=== PATIENT | male | born 1970 | race Caucasian/White ===

== ENCOUNTER 2022-11-24 00:43 | Inpatient (IN) | payer BC, SELFPAY ==
[2022-11-24] VITALS (22 sets, daily range): BP systolic 108–149; BP diastolic 74–110; PULSE 79–122; RESP 14–23; TEMP 36.6–37.3; O2SAT 90–100; BMI 20.5
--- NOTE | 2022-11-24 00:50 | EKG12_ITS ---
Test Reason : CP Blood Pressure : / mmHG Vent. Rate : 101 BPM Atrial Rate : 101 BPM P-R Int : 150 ms QRS Dur : 100 ms QT Int : 336 ms P-R-T Axes : 086 -50 179 degrees QTc Int : 435 ms Sinus tachycardia Left axis deviation Septal infarct , age undetermined T wave abnormality, consider anterolateral ischemia Abnormal ECG Confirmed by FRANK FONTAINE ([id number]), senior technical editor ALYSSA VITALE ([id number]) on 11/28/2022 9:35:29 AM Referred By: GRETA Confirmed By:FRANK FONTAINE
--- NOTE | 2022-11-24 01:04 | RAD_ITS ---
EXAM: XR CHEST, 1 VIEW CLINICAL INDICATION: chest pain TECHNIQUE: Frontal view of the chest. COMPARISON: October 08, 2022. FINDINGS: LUNGS AND PLEURAL SPACES: Clearance of most of the previously seen mild apparent interstitial edema. Slight residual right pleural effusion blunting the right lateral costophrenic angle. No pneumothorax. HEART: Unremarkable. Cardiac silhouette not enlarged. MEDIASTINUM: Central airways and mediastinal contour are unremarkable. BONES/JOINTS: Median sternotomy wires are new from prior exam. New presumed atrial appendage clip and cardiac valve prosthesis. SOFT TISSUES: Unremarkable. TUBES, LINES AND DEVICES: Right upper extremity PICC line catheter with its tip over the mid or distal SVC appears adequately positioned. RAD/Chest 1 View (Portable) IMPRESSION: 1. New postoperative changes. Normal heart size. 2. Mild prominent central pulmonary vessels but improved appearance of the lung periphery. 3. Slight right pleural effusion. 4. Adequately positioned PICC line. Electronically Signed: Milly Delgadillo MD at 2:44 EDT ,
--- NOTE | 2022-11-24 01:04 | CT_ITS ---
We are attempting to reach an attending provider to discuss findings. An addendum with communication details will be sent when the communication is complete. EXAM: CT HEAD WITHOUT INTRAVENOUS CONTRAST CLINICAL INDICATION: headache TECHNIQUE: Multiple axial images were obtained of the head without intravenous contrast. This CT exam was performed using one or more of the following dose reduction techniques: automated exposure control, adjustment of the mA and/or kV according to patient size, and/or use of iterative reconstruction technique. RADIATION DOSE: CTDIvol = 44.99 mGy, DLP = 880.47 mGy-cm. COMPARISON: CT and report October 06, 2022. FINDINGS: BRAIN AND EXTRA-AXIAL SPACES: There is new narrowing of the right sylvian fissure and new adjacent mild hyperdensity on both sides of the sylvian fissure extending to the basal ganglia, uncertain whether this is petechial hemorrhage or subacute hematoma, less likely mass since it is new from October 06, 2022 but MRI is suggested. No midline shift. Mild ventriculomegaly of the ventricles without yen hydrocephalus. No evidence of acute infarct. There is preservation of the hunt/white matter interface. Posterior fossa structures are unremarkable. Basal cisterns are patent. BONES/JOINTS: Unremarkable. No discrete lytic or blastic abnormalities. Minimal mucosal thickening in left ethmoid and sphenoid sinuses, mild bulging contour of the medial wall of the right orbit and suspected subacute or chronic fracture, mild increased bulging contour compared to prior exam, correlate with recent trauma. MASTOID AIR CELLS: Unremarkable. Clear. ORBITS: Visualized globes, extraocular muscles, optic nerves and retrobulbar fat appear unremarkable. CT/Brain/Head without Contrast IMPRESSION: 1. Narrowing of the right sylvian fissure with altered surrounding density, new from October 06, 2022. Considerations include resolving parenchymal hemorrhage, petechial hemorrhage, or underlying neoplasm. Mild increased bulging contour of the medial wall of right orbit but not convincing for acute fracture. Correlate with recent trauma. 2. MRI without and with contrast is recommended for further evaluation. Electronically Signed: Milly Delgadillo MD at 3:39 EDT Reading Location ID and State: [facility] / [place] Tel , Service support ,
[2022-11-24 01:14] LABS: Absolute Lymphocyte Count 1.08 X10^3/uL (0.83-4.51); Absolute Neutrophil Count 6.6 X10^3/uL (2.0-7.7); Basophil# 0.12 X10^3/uL; Basophil% 1.2 % (0-1); Eosinophil# 1.44 X10^3/uL; Eosinophils% 14.3 % (0-5); Hematocrit 28.5 % (40-54); Hemoglobin 8.6 g/dL (13.0-16.5); Lymphocyte # 1.08 X10^3/ul (0.83-4.51); Lymphocyte % 10.7 % (19-41); Mean Corp Hgb Conc 30.2 g/dL (32-36); Mean Corpuscular Hgb 29.8 pg (27.0-32.0); Mean Corpuscular Volume 98.6 fL (80-94); Mean Platelet Vol. 8.8 fl (6.2-12.0); Monocyte# 0.77 X10^3/uL; Monocyte% 7.6 % (0-10); NRBC Flagged by Analyzer 0 % (0-5); Neutrophil # 6.64 X10^3/uL (2.7-7.7); Neutrophil % 65.8 % (47-70); Platelet Count 468 K/mm3 (150-450); RBC Distribution Width CV 16.5 % (11.6-14.6); Red Blood Count 2.89 M/mm3 (4.6-6.2); White Blood Count 10.1 K/mm3 (4.4-11.0)
[2022-11-24 01:27] LABS: Anion Gap 6 (5-15); BUN 19 mg/dL (7-18); BUN/Creat Ratio 22.9 RATIO (10-20); Calcium,Total 8.7 mg/dL (8.5-10.1); Chloride 103 mmol/L (98-107); Creatinine, Serum 0.83 mg/dL (0.70-1.30); EST Glomerular Filtration Rate 103 mL/min (>60); Est Glom Filt Rate - Afr Amer 125 mL/min (>60); Estimated Creatinine Clearance 92.01 ml/min; Glucose 105 mg/dL (74-106); Magnesium 2.2 mg/dL (1.6-2.6); Potassium 4.3 mmol/L (3.5-5.1); Sodium Level 138 mmol/L (136-145)
[2022-11-24] MEDS: Ondansetron 4 MG/2 ML Vial IV (01:30)
[2022-11-24] MEDS: HYDROmorphone 1 MG/ML Syringe IV (01:30)
--- NOTE | 2022-11-24 04:08 | MRI_ITS ---
STUDY: MRI BRAIN WITH AND WITHOUT CONTRAST REASON FOR EXAM: Male, [address] Headache TECHNIQUE: Standardized multiplanar fat and water weighted pulse sequences were obtained. IV 13 cc clariscan was administered for the contrast portion of the examination. COMPARISON: Head CT dated November 24, 2022 FINDINGS: Mild to moderate gyral edema and tiny amounts of fluid are present at the posterior aspect of the right frontal lobe in the anterior aspect of the right parietal lobe resulting in obscuration/obliteration of the right sylvian fissure and moderate enhancement of the gyral surfaces consistent with focal cerebritis/encephalitis. There are no focal brain parenchymal lesions, neoplasms, or ring enhancement. There is no demonstrated empyema or abscess of the brain parenchyma on the current study. No abnormal enhancement or thickening of the meninges or dura is demonstrated on the current study. There is mild cerebral atrophy with widening of the extra-axial spaces and ventricular dilatation. There are a limited number of small white matter hyperintensities, distributed throughout the deep white matter tracts of the cerebral hemispheres, consistent with mild chronic white matter ischemic changes. There is no evidence for recent intracranial ischemia or other cause of cytotoxic edema on diffusion weighted imaging (DWI). Normal T2* images of the brain without demonstrated susceptibility artifact. There is no demonstrated hemosiderin stain. Normal bilateral basal ganglia. Normal thalami. There is no extra-axial fluid accumulation. Normal flow voids within the major intracranial circulation suggesting patency by spin echo criteria. Normal venous enhancement. There is no enhancing intra-axial or extra-axial abnormality. Normal sella turcica, pituitary gland, infundibular stalk, optic chiasm and hypothalamus. Normal tectal plate and pineal gland. Normal midbrain, cassandra and medulla. Normal cerebellum. Normal basal cisterns. Normal bilateral temporal bones. Normal bilateral internal auditory canals. No demonstrated orbital abnormality, within the constraints of a routine brain study. Normal visualized paranasal sinuses. Normal calvarium and skull base. Normal visualized soft tissue structures. Normal visualized upper cervical spine. Mild right and moderate left mastoiditis/abnormal air cell opacification is present. 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 Mild gyral edema and tiny amounts of fluid are present at the posterior aspect of the right frontal lobe in the anterior aspect of the right parietal lobe resulting in obscuration/obliteration of the right sylvian fissure and moderate enhancement of the gyral surfaces consistent with focal cerebritis/encephalitis. N.B. : The above Results were Read Back by Miguel Schofield MD to Aldo Lamas DO, and understanding confirmed on 11/24/2022 11:16:29 (ET). Electronically Signed: Miguel Schofield MD at 11:11 EDT ,
--- NOTE | 2022-11-24 04:46 | EX.ED.DYSGE1 ---
HPI <Dr. Morris Lynn DO - Last Filed: 11/24/22 21:57> History of Present Illness Chief Complaint: Chest Pain Informant: patient and EMS Narrative Narrative: Patient is a 52-year-old male with past medical history of IV drug abuse who developed endocarditis and had to have valve replacement at [facility]. He was discharged from there to a [facility] in the last 24 hours. He states since being at the [facility] he has developed a headache without trauma which is new for him he is also felt spasm and tension in his right hand and is felt some right-sided chest discomfort. He denies any recent trauma since arriving at the [facility] but as the headache is new for him he wanted to be seen and therefore EMS was called to bring him into the hospital for evaluation [facility] <Dr. Morris Lynn DO - Last Filed: 11/24/22 21:57> [facility] Medical History (Updated 11/24/22 @ 19:[address] Elena Levy DO) Endocarditis Home Medications acetaminophen 500 mg capsule 1,000 mg PO Q6H PRN pain 11/24/22 [History Last Taken Unknown] ampicillin sodium 2 gram intravenous piggyback 2 g IV Q4H 11/24/22 [History Last Taken Unknown] aspirin 81 mg capsule 81 mg PO DAILY 11/24/22 [History Last Taken Unknown] atorvastatin 40 mg tablet 40 mg PO QHS 11/24/22 [History Last Taken Unknown] ceftriaxone 2 gram/50 mL in dextrose (iso-osm) intravenous piggyback 2 g IV Q12H 11/24/22 [History Last Taken Unknown] folic acid 1 mg tablet 1 mg PO DAILY 11/24/22 [History Last Taken Unknown] heparin (bovine) 5,000 unit/mL injection solution 5,000 unit .Route .q12 11/24/22 [History Last Taken Unknown] melatonin 3 mg capsule 9 mg PO QHS 11/24/22 [History Last Taken Unknown] metoprolol succinate 50 mg tablet,extended release 24 hr 75 mg PO QHS 11/24/22 [History Last Taken Unknown] oxycodone 5 mg capsule 5 mg PO Q4H PRN pain 11/24/22 [History Last Taken Unknown] Allergy/AdvReac Type Severity Reaction Status Date / Time No Known Allergies Allergy Verified 11/24/22 05:05 Family History (Updated 11/24/22 @ 20:[address] Santosh Cifuentes MD) Other Heart disease Surgical History (Updated 11/24/22 @ 20:[address] Santosh Cifuentes MD) Status post heart valve replacement Social History Smoking Status: Former smoker ROS <Dr. Morris Lynn, DO - Last Filed: 11/24/22 21:57> ROS ED Constitutional Constitutional ED: Denies chills or fever(s) Eyes Eyes: Denies change in vision ENT ENT ED: Denies sore throat Cardiovascular Cardiovascular: Reports chest pain; Denies palpitations or racing heartbeat Respiratory/Chest Respiratory/Chest: Denies cough or dyspnea Gastrointestinal Gastrointestinal: Reports nausea; Denies abdominal pain, diarrhea or vomiting Genitourinary Genitourinary ED: Denies dysuria Musculoskeletal Musculoskeletal: Denies myalgias or neck pain Integumentary Denies rash Neurologic Neurologic: Reports headache(s); Denies paresthesias or weakness Hematologic/Lymphatic Hematologic/Lymphatic: Denies easy bleeding or easy bruising EXAM <Dr. Morris Lynn, DO - Last Filed: 11/24/22 21:57> Physical Exam Const Vital Signs: 11/24/22 00:44 11/24/22 01:44 11/24/22 02:44 Temperature 97.9 F Temperature Source Temporal Pulse Rate 100 98 94 Respiratory Rate 16 14 16 Blood Pressure 143/89 H 132/85 H 128/78 H Blood Pressure Mean 107 100 94 Pulse Ox 99 98 95 Oxygen Delivery Method Room Air Room Air 11/24/22 03:44 11/24/22 05:23 11/24/22 06:20 Temperature Temperature Source Pulse Rate 89 84 84 Respiratory Rate 16 16 16 Blood Pressure 129/81 H 117/74 108/74 Blood Pressure Mean 97 88 85 Pulse Ox 92 97 96 Oxygen Delivery Method Room Air Room Air Room Air 11/24/22 08:20 11/24/22 11:52 11/24/22 12:30 Temperature Temperature Source Pulse Rate 79 Respiratory Rate 20 H 20 H Blood Pressure 133/91 H 149/89 H 123/74 H Blood Pressure Mean 105 109 90 Pulse Ox 98 Oxygen Delivery Method Room Air Room Air 11/24/22 14:49 11/24/22 15:30 11/24/22 16:35 Temperature Temperature Source Pulse Rate Respiratory Rate 18 16 Blood Pressure 137/84 H 128/87 H Blood Pressure Mean 101 100 Pulse Ox 99 96 Oxygen Delivery Method Room Air Room Air 11/24/22 18:15 11/24/22 19:14 Temperature 99.2 F H Temperature Source Temporal Pulse Rate 109 H 113 H Respiratory Rate 18 23 H Blood Pressure 128/77 H 134/76 H Blood Pressure Mean 94 95 Pulse Ox 98 98 Oxygen Delivery Method Room Air Room Air Positive well nourished and well developed General Appearance ED: well developed HEENT Reports dry mucous membranes HEENT Narrative: Normocephalic atraumatic Mouth ED: Yes dry mucous membranes Mouth: dry mucous membranes Eyes PERRL and EOMs intact bilaterally General Eye ED: Negative for scleral icterus Neck supple Neck Narrative: No nuchal rigidity or meningeal signs Chest Wall Chest Narrative: Patient has surgical incisions to his chest and upper abdomen consistent with recent valve replacement from endocarditis. These wounds are clean dry and intact without secondary changes to suggest infection. There is diffuse pain on palpation of the chest wall without bony deformity or crepitance Resp normal respiratory effort and clear to auscultation bilaterally Resp Narrative: Breath sounds are diminished throughout but overall clear to auscultation without signs of respiratory distress Cardio regular rate and regular rhythm Rate: other Other Details: Radial and carotid pulses are equal and symmetric GI normal to inspection, nondistended, normoactive bowel sounds, non-tender, non-distended and no masses GI Narrative: No voluntary guarding or rigidity. No pulsatile mass or fluid wave. No increased tympany noted Auscultation: normoactive bowel sounds Palpation: soft Extremity normal to inspection Extremity Narrative: No asymmetric edema no pitting edema negative Homans' sign bilaterally Patient has a PICC line in place in the right upper arm and its insertion appears clean dry and intact without secondary changes to suggest infection and no asymmetric swelling to suggest upper extremity DVT Patient does appear to have contraction of the right hand when compared to left without obvious bony deformity or joint effusion or signs of ligamentous or tendon injury Neuro oriented x3 and CN's II-XII intact bilaterally Sensorium / Orientation: alert Psych mental status grossly normal Skin Skin Narrative: Postoperative wounds as documented above without secondary changes to suggest infection <Dr. Aldo Lamas, DO - Last Filed: 11/24/22 12:49> Physical Exam Const Vital Signs: 11/24/22 00:44 11/24/22 01:44 11/24/22 02:44 Temperature 97.9 F Temperature Source Temporal Pulse Rate 100 98 94 Respiratory Rate 16 14 16 Blood Pressure 143/89 H 132/85 H 128/78 H Blood Pressure Mean 107 100 94 Pulse Ox 99 98 95 Oxygen Delivery Method Room Air Room Air 11/24/22 03:44 11/24/22 05:23 11/24/22 06:20 Temperature Temperature Source Pulse Rate 89 84 84 Respiratory Rate 16 16 16 Blood Pressure 129/81 H 117/74 108/74 Blood Pressure Mean 97 88 85 Pulse Ox 92 97 96 Oxygen Delivery Method Room Air Room Air Room Air 11/24/22 08:20 11/24/22 11:52 11/24/22 12:30 Temperature Temperature Source Pulse Rate 79 Respiratory Rate 20 H 20 H Blood Pressure 133/91 H 149/89 H 123/74 H Blood Pressure Mean 105 109 90 Pulse Ox 98 Oxygen Delivery Method Room Air Room Air 11/24/22 14:49 11/24/22 15:30 11/24/22 16:35 Temperature Temperature Source Pulse Rate Respiratory Rate 18 16 Blood Pressure 137/84 H 128/87 H Blood Pressure Mean 101 100 Pulse Ox 99 96 Oxygen Delivery Method Room Air Room Air 11/24/22 18:15 11/24/22 19:14 Temperature 99.2 F H Temperature Source Temporal Pulse Rate 109 H 113 H Respiratory Rate 18 23 H Blood Pressure 128/77 H 134/76 H Blood Pressure Mean 94 95 Pulse Ox 98 98 Oxygen Delivery Method Room Air Room Air <Dr. Elena Levy, DO - Last Filed: 11/24/22 19:19> Physical Exam Const Vital Signs: 11/24/22 00:44 11/24/22 01:44 11/24/22 02:44 Temperature 97.9 F Temperature Source Temporal Pulse Rate 100 98 94 Respiratory Rate 16 14 16 Blood Pressure 143/89 H 132/85 H 128/78 H Blood Pressure Mean 107 100 94 Pulse Ox 99 98 95 Oxygen Delivery Method Room Air Room Air 11/24/22 03:44 11/24/22 05:23 11/24/22 06:20 Temperature Temperature Source Pulse Rate 89 84 84 Respiratory Rate 16 16 16 Blood Pressure 129/81 H 117/74 108/74 Blood Pressure Mean 97 88 85 Pulse Ox 92 97 96 Oxygen Delivery Method Room Air Room Air Room Air 11/24/22 08:20 11/24/22 11:52 11/24/22 12:30 Temperature Temperature Source Pulse Rate 79 Respiratory Rate 20 H 20 H Blood Pressure 133/91 H 149/89 H 123/74 H Blood Pressure Mean 105 109 90 Pulse Ox 98 Oxygen Delivery Method Room Air Room Air 11/24/22 14:49 11/24/22 15:30 11/24/22 16:35 Temperature Temperature Source Pulse Rate Respiratory Rate 18 16 Blood Pressure 137/84 H 128/87 H Blood Pressure Mean 101 100 Pulse Ox 99 96 Oxygen Delivery Method Room Air Room Air 11/24/22 18:15 11/24/22 19:14 Temperature 99.2 F H Temperature Source Temporal Pulse Rate 109 H 113 H Respiratory Rate 18 23 H Blood Pressure 128/77 H 134/76 H Blood Pressure Mean 94 95 Pulse Ox 98 98 Oxygen Delivery Method Room Air Room Air [facility] <Dr. Morris Lynn, DO - Last Filed: 11/24/22 21:57> [facility] Narrative Medical decision making narrative: Patient presented to the ER slightly hypertensive but otherwise with stable vitals. Patient presented with multiple complaints but mainly was concerned about the contraction of his right hand and the fact he has a new onset headache. He states he does not typically get headache and secondary to his intellectual form a noncontrast head CT. This showed changes on the sylvian fissure which could indicate bleed versus neoplasm. Based on the patient's recent history of endocarditis as well as the fact that he now has a new headache it was recommended that he receive an MRI to further differentiate these findings. There is concern for electrolyte abnormality as a cause of his hand contracture as well. Basic blood work showed no elevation of the white count going against infection his hemoglobin is low at 8.6 but still above transfusion value and there is no signs of acute kidney injury or severe electrolyte derangement. Also chest x-ray reveals no pneumothorax or pleural effusion or pneumonia as a cause of his mild chest discomfort. Therefore at this time I believe the chest discomfort is related to postoperative pain based on his recent surgery as EKG does not show acute coronary syndrome changes in chest x-ray reveals no acute lung pathology. The MRI will be obtained in the morning and disposition will be based on the MRI results. If they show no acute findings and I believe patient will be safe for discharge to [facility] for continued rehab and care but if MRI suggest patient has potential bleed or mass he may need admitted for further evaluation History & Record Review Discussion w/independent historian: EMS personnel and Patient Lab Data Attestation: I reviewed the patient's lab results. Labs: Laboratory Results - last 24 hr 11/24/22 11/24/22 00:45 12:25 WBC 10.1 RBC 2.89 L Hgb 8.6 L Hct 28.5 L MCV 98.6 H MCH 29.8 MCHC 30.2 L RDW Std Deviation 60.0 H RDW Coeff of Polo 16.5 H Plt Count 468 H MPV 8.8 Immature Gran % (Auto) 0.400 Neut % (Auto) 65.8 Lymph % (Auto) 10.7 L Beaver % (Auto) 7.6 Eos % (Auto) 14.3 H Baso % (Auto) 1.2 H Absolute Neuts (auto) 6.6 Absolute Lymphs (auto) 1.08 Nucleated RBC % 0 Sodium 138 Potassium 4.3 Chloride 103 Carbon Dioxide 29.0 Anion Gap 6 BUN 19 H Creatinine 0.83 Estim Creat Clear Calc 92.01 Est GFR (MDRD) Af Amer 125 Est GFR (MDRD) Non-Af 103 BUN/Creatinine Ratio 22.9 H Glucose 105 Calcium 8.7 Magnesium 2.2 CSF Appearance CLEAR CSF Color COLORLESS CSF WBC 57 H CSF RBC 86 H CSF Cell Count Tube # 3 CSF Total Cell Counted TNP CSF Neutrophils 57 H CSF Lymphocytes 29 L CSF Monocytes 14 L CSF Comment May follow CSF Glucose 39 L CSF Total Protein 68.0 H Radiography Diagnostic Testing: Clinical Impression(s) from Imaging Studies Brain CT 11/24/22 01:04 IMPRESSION: 1. Narrowing of the right sylvian fissure with altered surrounding density, new from October 06, 2022. Considerations include resolving parenchymal hemorrhage, petechial hemorrhage, or underlying neoplasm. Mild increased bulging contour of the medial wall of right orbit but not convincing for acute fracture. Correlate with recent trauma. 2. MRI without and with contrast is recommended for further evaluation. Electronically Signed: Milly Delgadillo MD at 3:39 EDT , ADDENDUM: 11/24/22 0355 IMPRESSION: 1. Narrowing of the right sylvian fissure with altered surrounding density, new from October 06, 2022. Considerations include resolving parenchymal hemorrhage, petechial hemorrhage, or underlying neoplasm. Mild increased bulging contour of the medial wall of right orbit but not convincing for acute fracture. Correlate with recent trauma. 2. MRI without and with contrast is recommended for further evaluation. N.B. : The above Results were Read Back by Milly Delgadillo MD to Morris Lynn DO, and understanding confirmed on 11/24/2022 03:47:21 (ET). Electronically Signed: Milly Delgadillo MD at 3:39 EDT , Chest X-Ray 11/24/22 01:04 IMPRESSION: 1. New postoperative changes. Normal heart size. 2. Mild prominent central pulmonary vessels but improved appearance of the lung periphery. 3. Slight right pleural effusion. 4. Adequately positioned PICC line. Electronically Signed: Milly Delgadillo MD at 2:44 EDT , Brain MRI 11/24/22 04:08 IMPRESSION: Right frontal and parietal lobe mild to moderate cerebritis/encephalitis. Mild gyral edema and tiny amounts of fluid are present at the posterior aspect of the right frontal lobe in the anterior aspect of the right parietal lobe resulting in obscuration/obliteration of the right sylvian fissure and moderate enhancement of the gyral surfaces consistent with focal cerebritis/encephalitis. N.B. : The above Results were Read Back by Miguel Schofield MD to Aldo Lamas DO, and understanding confirmed on 11/24/2022 11:16:29 (ET). Electronically Signed: Miguel Schofield MD at 11:11 EDT , 1 view chest x-ray as interpreted by the emergency medicine physician reveals a small right pleural effusion without infiltrate or pneumothorax and a appropriate placed PICC line <Dr. Aldo Lamas, DO - Last Filed: 11/24/22 12:49> [facility] Lab Data Labs: Laboratory Results - last 24 hr 11/24/22 11/24/22 00:45 12:25 WBC 10.1 RBC 2.89 L Hgb 8.6 L Hct 28.5 L MCV 98.6 H MCH 29.8 MCHC 30.2 L RDW Std Deviation 60.0 H RDW Coeff of Polo 16.5 H Plt Count 468 H MPV 8.8 Immature Gran % (Auto) 0.400 Neut % (Auto) 65.8 Lymph % (Auto) 10.7 L Beaver % (Auto) 7.6 Eos % (Auto) 14.3 H Baso % (Auto) 1.2 H Absolute Neuts (auto) 6.6 Absolute Lymphs (auto) 1.08 Nucleated RBC % 0 Sodium 138 Potassium 4.3 Chloride 103 Carbon Dioxide 29.0 Anion Gap 6 BUN 19 H Creatinine 0.83 Estim Creat Clear Calc 92.01 Est GFR (MDRD) Af Amer 125 Est GFR (MDRD) Non-Af 103 BUN/Creatinine Ratio 22.9 H Glucose 105 Calcium 8.7 Magnesium 2.2 CSF Appearance CLEAR CSF Color COLORLESS CSF WBC 57 H CSF RBC 86 H CSF Cell Count Tube # 3 CSF Total Cell Counted TNP CSF Neutrophils 57 H CSF Lymphocytes 29 L CSF Monocytes 14 L CSF Comment May follow CSF Glucose 39 L CSF Total Protein 68.0 H Radiography Diagnostic Testing: Clinical Impression(s) from Imaging Studies Brain CT 11/24/22 01:04 IMPRESSION: 1. Narrowing of the right sylvian fissure with altered surrounding density, new from October 06, 2022. Considerations include resolving parenchymal hemorrhage, petechial hemorrhage, or underlying neoplasm. Mild increased bulging contour of the medial wall of right orbit but not convincing for acute fracture. Correlate with recent trauma. 2. MRI without and with contrast is recommended for further evaluation. Electronically Signed: Milly Delgadillo MD at 3:39 EDT , ADDENDUM: 11/24/22 0354 IMPRESSION: 1. Narrowing of the right sylvian fissure with altered surrounding density, new from October 06, 2022. Considerations include resolving parenchymal hemorrhage, petechial hemorrhage, or underlying neoplasm. Mild increased bulging contour of the medial wall of right orbit but not convincing for acute fracture. Correlate with recent trauma. 2. MRI without and with contrast is recommended for further evaluation. N.B. : The above Results were Read Back by Milly Delgadillo MD to Morris Lynn DO, and understanding confirmed on 11/24/2022 03:47:21 (ET). Electronically Signed: Milly Delgadillo MD at 3:39 EDT , Chest X-Ray 11/24/22 01:04 IMPRESSION: 1. New postoperative changes. Normal heart size. 2. Mild prominent central pulmonary vessels but improved appearance of the lung periphery. 3. Slight right pleural effusion. 4. Adequately positioned PICC line. Electronically Signed: Milly Delgadillo MD at 2:44 EDT , Brain MRI 11/24/22 04:08 IMPRESSION: Right frontal and parietal lobe mild to moderate cerebritis/encephalitis. Mild gyral edema and tiny amounts of fluid are present at the posterior aspect of the right frontal lobe in the anterior aspect of the right parietal lobe resulting in obscuration/obliteration of the right sylvian fissure and moderate enhancement of the gyral surfaces consistent with focal cerebritis/encephalitis. N.B. : The above Results were Read Back by Miguel Schofield MD to Aldo Lamas DO, and understanding confirmed on 11/24/2022 11:16:29 (ET). Electronically Signed: Miguel Schofield MD at 11:11 EDT , Treatment and Re-Evaluation :: From [place] at 7 AM Patient was signed out to me with chief complaint of headache status post recent admission for enterococcal endocarditis, bacteremia status post valve repair at [facility]. Awaiting MRI after CT showed concerning findings for hemorrhage versus mass. No acute on my care. Patient is afebrile, nontoxic-appearing. No focal neurologic deficits. MRI showed evidence of cerebritis/encephalitis. Lumbar puncture was performed by myself. Please see procedure note. Patient tolerated procedure well. Procedure: Lumbar Puncture The procedure was performed by myself. Indication: Encephalitis Risks and Benefits: The risks (including but not limited to pain, bleeding, infection and post-procedure headache) and benefits of lumbar puncture were discussed. Consent: Written consent obtained and signed placed on the chart Time Out: Prior to lumbar puncture a time out with nursing was called. Preparation: The lumbar region was prepped and draped in standard bedside fashion. Procedure Description: Patient was then seated position with lumbar flexion. Inserted needle with return of white to xanthochromic fluid. The CSF was collected and sent to the lab for analysis. The patient tolerated the procedure well without complications and my repeat neurovascular exam post-procedure is unchanged. Gave broad-spectrum antibiotics including vancomycin, ceftriaxone, and acyclovir empirically. Communicated with [facility] spoke to Dr. Yancey who accepted the patient's case in transfer. They will call back with a bed assignment. Impression: Encephalitis, cerebritis Disposition: Transfer to [facility] Total critical care time today provided was at least 35 minutes. This excludes separately billable procedures. There was a high probability of clinically significant/life threatening deterioration in the patient's condition which required my urgent intervention. <Dr. Elena Levy, DO - Last Filed: 11/24/22 19:19> [facility] Lab Data Labs: Laboratory Results - last 24 hr 11/24/22 11/24/22 00:45 12:25 WBC 10.1 RBC 2.89 L Hgb 8.6 L Hct 28.5 L MCV 98.6 H MCH 29.8 MCHC 30.2 L RDW Std Deviation 60.0 H RDW Coeff of Polo 16.5 H Plt Count 468 H MPV 8.8 Immature Gran % (Auto) 0.400 Neut % (Auto) 65.8 Lymph % (Auto) 10.7 L Beaver % (Auto) 7.6 Eos % (Auto) 14.3 H Baso % (Auto) 1.2 H Absolute Neuts (auto) 6.6 Absolute Lymphs (auto) 1.08 Nucleated RBC % 0 Sodium 138 Potassium 4.3 Chloride 103 Carbon Dioxide 29.0 Anion Gap 6 BUN 19 H Creatinine 0.83 Estim Creat Clear Calc 92.01 Est GFR (MDRD) Af Amer 125 Est GFR (MDRD) Non-Af 103 BUN/Creatinine Ratio 22.9 H Glucose 105 Calcium 8.7 Magnesium 2.2 CSF Appearance CLEAR CSF Color COLORLESS CSF WBC 57 H CSF RBC 86 H CSF Cell Count Tube # 3 CSF Total Cell Counted TNP CSF Neutrophils 57 H CSF Lymphocytes 29 L CSF Monocytes 14 L CSF Comment May follow CSF Glucose 39 L CSF Total Protein 68.0 H Radiography Diagnostic Testing: Clinical Impression(s) from Imaging Studies Brain CT 11/24/22 01:04 IMPRESSION: 1. Narrowing of the right sylvian fissure with altered surrounding density, new from October 06, 2022. Considerations include resolving parenchymal hemorrhage, petechial hemorrhage, or underlying neoplasm. Mild increased bulging contour of the medial wall of right orbit but not convincing for acute fracture. Correlate with recent trauma. 2. MRI without and with contrast is recommended for further evaluation. Electronically Signed: Milly Delgadillo MD at 3:39 EDT , ADDENDUM: 11/24/22 0354 IMPRESSION: 1. Narrowing of the right sylvian fissure with altered surrounding density, new from October 06, 2022. Considerations include resolving parenchymal hemorrhage, petechial hemorrhage, or underlying neoplasm. Mild increased bulging contour of the medial wall of right orbit but not convincing for acute fracture. Correlate with recent trauma. 2. MRI without and with contrast is recommended for further evaluation. N.B. : The above Results were Read Back by Milly Delgadillo MD to Morris Lynn DO, and understanding confirmed on 11/24/2022 03:47:21 (ET). Electronically Signed: Milly Delgadillo MD at 3:39 EDT , Chest X-Ray 11/24/22 01:04 IMPRESSION: 1. New postoperative changes. Normal heart size. 2. Mild prominent central pulmonary vessels but improved appearance of the lung periphery. 3. Slight right pleural effusion. 4. Adequately positioned PICC line. Electronically Signed: Milly Delgadillo MD at 2:44 EDT , Brain MRI 11/24/22 04:08 IMPRESSION: Right frontal and parietal lobe mild to moderate cerebritis/encephalitis. Mild gyral edema and tiny amounts of fluid are present at the posterior aspect of the right frontal lobe in the anterior aspect of the right parietal lobe resulting in obscuration/obliteration of the right sylvian fissure and moderate enhancement of the gyral surfaces consistent with focal cerebritis/encephalitis. N.B. : The above Results were Read Back by Miguel Schofield MD to Aldo Lamas DO, and understanding confirmed on 11/24/2022 11:16:29 (ET). Electronically Signed: Miguel Schofield MD at 11:11 EDT , Treatment and Re-Evaluation :: From [place] at 7 AM Patient was signed out to me with chief complaint of headache status post recent admission for enterococcal endocarditis, bacteremia status post valve repair at [facility]. Awaiting MRI after CT showed concerning findings for hemorrhage versus mass. No acute on my care. Patient is afebrile, nontoxic-appearing. No focal neurologic deficits. MRI showed evidence of cerebritis/encephalitis. Lumbar puncture was performed by myself. Please see procedure note. Patient tolerated procedure well. Procedure: Lumbar Puncture The procedure was performed by myself. Indication: Encephalitis Risks and Benefits: The risks (including but not limited to pain, bleeding, infection and post-procedure headache) and benefits of lumbar puncture were discussed. Consent: Written consent obtained and signed placed on the chart Time Out: Prior to lumbar puncture a time out with nursing was called. Preparation: The lumbar region was prepped and draped in standard bedside fashion. Procedure Description: Patient was then seated position with lumbar flexion. Inserted needle with return of white to xanthochromic fluid. The CSF was collected and sent to the lab for analysis. The patient tolerated the procedure well without complications and my repeat neurovascular exam post-procedure is unchanged. Gave broad-spectrum antibiotics including vancomycin, ceftriaxone, and acyclovir empirically. Communicated with [facility] spoke to Dr. Yancey who accepted the patient's case in transfer. They will call back with a bed assignment. Impression: Encephalitis, cerebritis Disposition: Transfer to [facility] Total critical care time today provided was at least 35 minutes. This excludes separately billable procedures. There was a high probability of clinically significant/life threatening deterioration in the patient's condition which required my urgent intervention. Patient signed out to me at 4 PM pending bed acceptance at [facility]. At 6 PM he still did not have a bed. Spoke with hospitalist who recommended we check with [facility]. Patient is agreeable with this. We called [facility] however they are not excepting any transfers. Patient will be admitted to our ICU until bed becomes available at [facility]. Discharge Plan Triage Chief Complaint: Chest Pain ED Provider: Morris Lynn Dx/Rx/DC Orders Clinical Impression: Headache, Meningeoencephalitis, bacterial Primary Care Provider: Alona Kennedy Disposition Disposition: Acute Care Hospital Discharge Location: [facility] Discharge Date/Time: 11/24/22 20:43
[2022-11-24 13:21] LABS: Glucose Spinal Fluid 39 mg/dL (40-75)
[2022-11-24 13:26] LABS: Auto B Fluid Analyzer BKGD Ct COUNTS W/IN LIMITS (W/IN LIMITS); Tested Tube # 3
[2022-11-24 13:27] LABS: Appearance CSF (character) CLEAR (Clear); RBC Count, Spinal Fluid 86 /mm-3 (None seen)
[2022-11-24 13:28] LABS: White Count, CSF 57 /mm-3 (0 - 5)
[2022-11-24 13:48] LABS: Lymphocytes,CSF 29 % (40 - 80); Monocytes,CSF 14 % (15 - 45); Neutrophils,CSF 57 % (0 - 6)
[2022-11-24 13:49] LABS: Body Fluid QC Type(s) BF1Q
[2022-11-24] MEDS: Vancomycin IV 1,000 MG/200 ML BAG 200 MG IV (14:46)
[2022-11-24] MEDS: Ketorolac 10 MG Tablet PO (16:45)
--- NOTE | 2022-11-24 20:09 | HP.PCM.HOS_ITS ---
HPI - General General Date of Admission: 11/24/22 HPI Narrative KWAKU PORTILLO, is a 52 M who presents from the halfway with a headache and neck stiffness. MRI was obtained on transfer that demonstrated encephalitis/cerebritis so an LP was done that is consistent with a bacterial infection. 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 He says that his last use was a month ago when he was found down and taken to the hospital. He injects methamphetamines. He was discharged from the hospital on ampicillin and Rocephin. [facility] was called and they have accepted him in transfer however they do not have any beds, given the severity of his illness other hospitals were tried including [facility] which was on divert therefore we will plan to admit to the ICU pending transfer. [facility] Medical History (Updated 11/24/22 @ 19:[address] Elena Levy, DO) Endocarditis Home Medications acetaminophen 500 mg capsule 1,000 mg PO Q6H PRN pain 11/24/22 [History Last Ta kandi Unknown] ampicillin sodium 2 gram intravenous piggyback 2 g IV Q4H 11/24/22 [History Last Taken Unknown] aspirin 81 mg capsule 81 mg PO DAILY 11/24/22 [History Last Taken Unknown] atorvastatin 40 mg tablet 40 mg PO QHS 11/24/22 [History Last Taken Unknown] ceftriaxone 2 gram/50 mL in dextrose (iso-osm) intravenous piggyback 2 g IV Q12H 11/24/22 [History Last Taken Unknown] folic acid 1 mg tablet 1 mg PO DAILY 11/24/22 [History Last Taken Unknown] heparin (bovine) 5,000 unit/mL injection solution 5,000 unit .Route .q12 11/24/22 [History Last Taken Unknown] melatonin 3 mg capsule 9 mg PO QHS 11/24/22 [History Last Taken Unknown] metoprolol succinate 50 mg tablet,extended release 24 hr 75 mg PO QHS 11/24/22 [History Last Taken Unknown] oxycodone 5 mg capsule 5 mg PO Q4H PRN pain 11/24/22 [History Last Taken Unknown] Allergy/AdvReac Type Severity Reaction Status Date / Time No Known Allergies Allergy Verified 11/24/22 05:05 Family History (Updated 11/24/22 @ 20:[address] Santosh Cifuentes MD) Other Heart disease Surgical History (Updated 11/24/22 @ 20:[address] Santosh Cifuentes MD) Status post heart valve replacement Social History Smoking Status: Former smoker ROS Constitutional Constitutional: Denies chills, fatigue, fever(s) or malaise Eyes Eyes: Denies blurry vision ENT HEENT: Denies headache(s) or nasal discharge Cardiovascular Cardiovascular: Denies chest pain, dyspnea on exertion or syncope Respiratory/Chest Respiratory/Chest: Denies cough, shortness of breath at rest or shortness of b reath with exertion Gastrointestinal Gastrointestinal: Denies constipation, diarrhea, nausea or vomiting Genitourinary Genitourinary: Denies dysuria Neurologic Neurologic: Reports headache(s) and other Details: Neck pain ; Denies focal weakness, numbness or tremor(s) Psychiatric Psychiatric: Denies anxiety or depression Vital Signs Vital Signs Vital Signs: 11/24/22 00:44 11/24/22 01:44 11/24/22 02:44 Temperature 97.9 F Temperature Source Temporal Pulse Rate 100 98 94 Respiratory Rate 16 14 16 Blood Pressure 143/89 H 132/85 H 128/78 H Blood Pressure Mean 107 100 94 Pulse Ox 99 98 95 Oxygen Delivery Method Room Air Room Air 11/24/22 03:44 11/24/22 05:23 11/24/22 06:20 Temperature Temperature Source Pulse Rate 89 84 84 Respiratory Rate 16 16 16 Blood Pressure 129/81 H 117/74 108/74 Blood Pressure Mean 97 88 85 Pulse Ox 92 97 96 Oxygen Delivery Method Room Air Room Air Room Air 11/24/22 08:20 11/24/22 11:52 11/24/22 12:30 Temperature Temperature Source Pulse Rate 79 Respiratory Rate 20 H 20 H Blood Pressure 133/91 H 149/89 H 123/74 H Blood Pressure Mean 105 109 90 Pulse Ox 98 Oxygen Delivery Method Room Air Room Air 11/24/22 14:49 11/24/22 15:30 11/24/22 16:35 Temperature Temperature Source Pulse Rate Respiratory Rate 18 16 Blood Pressure 137/84 H 128/87 H Blood Pressure Mean 101 100 Pulse Ox 99 96 Oxygen Delivery Method Room Air Room Air 11/24/22 18:15 11/24/22 19:14 Temperature 99.2 F H Temperature Source Temporal Pulse Rate 109 H 113 H Respiratory Rate 18 23 H Blood Pressure 128/77 H 134/76 H Blood Pressure Mean 94 95 Pulse Ox 98 98 Oxygen Delivery Method Room Air Room Air Weight Weight: 139 lb 5.314 oz Body Mass Index (BMI) 20.5 Physical Exam Narrative General: Alert, Oriented x3, Cooperative, No apparent distress HEENT: Atraumatic, PERRLA, EOMI, Normocephalic, poor dentition Oral: Moist Mucosa Neck: Supple, painful with mobility, no JVD Lungs: Clear to auscultation, Normal air movement, No rhonchi, No wheeze, No ra les Cardiovascular: Regular rate, Regular Rhythm, Normal S1, Normal S2, No murmurs Abdomen: Soft, Non Tender, Non-Distended, No Hepato-splenomegaly Extremities: No edema, Capillary Refill Less than 3 Seconds Skin: No rashes, No breakdown Musculoskeletal: No Tenderness to Palpation of Joints or Extremities Neurological: Cranial nerves II-XII grossly intact, Motor Exam 5/5 strength throughout, Sensory exam intact to light touch and pain Psych/Mental Status: Normal Affect, Appropriate Results Lab / Micro Data 11/24/22 00:45 11/24/22 00:45 Labs: Laboratory Results - last 24 hr 11/24/22 00:45: WBC 10.1, RBC 2.89 L, Hgb 8.6 L, Hct 28.5 L, MCV 98.6 H, MCH 29.8, MCHC 30.2 L, RDW Std Deviation 60.0 H, RDW Coeff of Polo 16.5 H, Plt Count 468 H, MPV 8.8, Immature Gran % (Auto) 0.400, Neut % (Auto) 65.8, Lymph % (Auto) 10.7 L, [place] % (Auto) 7.6, Eos % (Auto) 14.3 H, Baso % (Auto) 1.2 H, Absolute Neuts (auto) 6.6, Absolute Lymphs (auto) 1.08, Nucleated RBC % 0, Sodium 138, Potassium 4.3, Chloride 103, Carbon Dioxide 29.0, Anion Gap 6, BUN 19 H, Crea tinine 0.83, Estim Creat Clear Calc 92.01, Est GFR (MDRD) Af Amer 125, Est GFR (MDRD) Non-Af 103, BUN/Creatinine Ratio 22.9 H, Glucose 105, Calcium 8.7, Magnesium 2.2 11/24/22 12:25: CSF Appearance CLEAR, CSF Color COLORLESS, CSF WBC 57 H, CSF RBC 86 H, CSF Cell Count Tube # 3, CSF Total Cell Counted TNP, CSF Neutrophils 57 H, CSF Lymphocytes 29 L, CSF Monocytes 14 L, CSF Comment May follow, CSF Glucose 39 L, CSF Total Protein 68.0 H Micro: Microbiology 11/24/22 12:25 Csf, Spinal Fluid Gram Stain - Final 11/24/22 12:25 Csf, Spinal Fluid Streptococcus pneumoniae Antigen (M - Final Radiology Impression Brain CT 11/24/22 01:04 IMPRESSION: 1. Narrowing of the right sylvian fissure with altered surrounding density, new from October 06, 2022. Considerations include resolving parenchymal hemorrhage, petechial hemorrhage, or underlying neoplasm. Mild increased bulging contour of the medial wall of right orbit but not convincing for acute fracture. Correlate with recent trauma. 2. MRI without and with contrast is recommended for further evaluation. Electronically Signed: Milly Delgadillo MD at 3:39 EDT , ADDENDUM: 11/24/22 0354 IMPRESSION: 1. Narrowing of the right sylvian fissure with altered surrounding density, new from October 06, 2022. Considerations include resolving parenchymal hemorrhage, petechial hemorrhage, or underlying neoplasm. Mild increased bulging contour of the medial wall of right orbit but not convincing for acute fracture. Correlate with recent trauma. 2. MRI without and with contrast is recommended for further evaluation. N.B. : The above Results were Read Back by Milly Delgadillo MD to Morris Lynn DO, and understanding confirmed on 11/24/2022 03:47:21 (ET). Electronically Signed: Milly Delgadillo MD at 3:39 EDT , Chest X-Ray 11/24/22 01:04 IMPRESSION: 1. New postoperative changes. Normal heart size. 2. Mild prominent central pulmonary vessels but improved appearance of the lung periphery. 3. Slight right pleural effusion. 4. Adequately positioned PICC line. Electronically Signed: Milly Delgadillo MD at 2:44 EDT , Brain MRI 11/24/22 04:08 IMPRESSION: Right frontal and parietal lobe mild to moderate cerebritis/encephalitis. Mild gyral edema and tiny amounts of fluid are present at the posterior aspect of the right frontal lobe in the anterior aspect of the right parietal lobe resulting in obscuration/obliteration of the right sylvian fissure and moderate enhancement of the gyral surfaces consistent with focal cerebritis/encephalitis. N.B. : The above Results were Read Back by Miguel Schofield MD to Aldo Lamas DO, and understanding confirmed on 11/24/2022 11:16:29 (ET). Electronically Signed: Miguel Schofield MD at 11:11 EDT , Assessment & Plan Assessment/Plan (1) Meningeoencephalitis, bacterial: PLAN: Plan 1. Meningitis in the setting of endocarditis status post valve replacement at [facility] ? He was discharged on Rocephin and ampicillin ? Given the findings of meningitis as well as a CSF fluid which demonstrates 57% neutrophils as well as 57 white blood cells and a decreased glucose to 39 and elevated protein, will start on ampicillin as well as acyclovir and cefepime and vancomycin given the fact that he had been hospitalized for about a month prior to this ? We will consult infectious disease and admit to the ICU ? Transfer is pending to [facility] ? Fluid cultures are pending and viral studies are also pending ? Gram stain does show white blood cells but does not show organisms however given his bacterial endocarditis and the finding on the CSF we will continue with empiric antibiotics at this time ? We will resume his aspirin as well as Lipitor and blood pressure medications in the setting of his recent cardiac surgery ? Can continue with his home oxycodone for postoperative ? We will provide with a nicotine patch secondary to tobacco abuse, discussed cessation DVT: Heparin 76 minutes was spent on direct patient care, including documentation as well as chart review and collaboration with colleagues Charges/Coding Visit Charges Inpatient E&M: 86093 Init Hosp L3
[2022-11-24] MEDS: Metoprolol(XL)Succ 25 MG Tablet 75 MG PO (22:23)
[2022-11-24] MEDS: Atorvastatin Calcium 40 MG Tablet PO (22:23)
[2022-11-24] MEDS: Heparin Injection (Vial) 5,000 UNIT/ML VIAL 5000 UNIT SC (22:24)
[2022-11-24] MEDS: 0.9% Saline Lock 10 ML Syringe IV (22:44)
[2022-11-24] MEDS: Acetaminophen 500 MG Tablet 1000 MG PO (22:45)
[2022-11-24] MEDS: oxyCODONE 5 MG Tablet PO (22:45)
--- NOTE | 2022-11-24 23:00 | PCM.RX.CS ---
Consult Antibiotic Management Pharmacy has been consulted to manage selected antiobiotic: Vancomycin Type of Intervention Type of Consult: New start Labs Labs: Sodium 138 mmol/L (136-145) 11/24/22 00:45 Potassium 4.3 mmol/L (3.5-5.1) 11/24/22 00:45 Chloride 103 mmol/L (98-107) 11/24/22 00:45 Carbon Dioxide 29.0 mmol/L (21.0-32.0) 11/24/22 00:45 Anion Gap 6 (5-15) 11/24/22 00:45 BUN 19 mg/dL (7-18) H 11/24/22 00:45 Creatinine 0.83 mg/dL (0.70-1.30) 11/24/22 00:45 Est GFR (MDRD) Af Amer 125 mL/min (>60) 11/24/22 00:45 Est GFR (MDRD) Non-Af 103 mL/min (>60) 11/24/22 00:45 BUN/Creatinine Ratio 22.9 RATIO (10-20) H 11/24/22 00:45 Glucose 105 mg/dL (74-106) 11/24/22 00:45 Microbiology Microbiology: Microbiology 11/24/22 12:25 Csf, Spinal Fluid Gram Stain - Final 11/24/22 12:25 Csf, Spinal Fluid Streptococcus pneumoniae Antigen (M - Final Estimated Creatinine Clearance Estimated Creatinine Clearance: 85.9 Pharmacy Plan for Drug Dosing Pharmacy Plan for Drug Dosing: Pharmacy Service will continue to monitor and adjust dosing as required. Follow-Up Labs Follow-Up Labs: Trough: Vancomycin Date/Time Labs Ordered Labs to be done on [date and time ordered]: 11/26 @ 0200
[2022-11-25] VITALS (26 sets, daily range): BP systolic 95–141; BP diastolic 67–105; PULSE 83–113; RESP 14–27; TEMP 36.6–36.8; O2SAT 90–100; BMI 20.5
[2022-11-25] MEDS: Vancomycin IV 1,000 MG/200 ML BAG 200 MG IV ×2 (02:43→15:38)
[2022-11-25 05:09] LABS: Absolute Lymphocyte Count 1.74 X10^3/uL (0.83-4.51); Absolute Neutrophil Count 4.4 X10^3/uL (2.0-7.7); Basophil% 1.2 % (0-1); Eosinophil# 1.31 X10^3/uL; Hematocrit 28.9 % (40-54); Lymphocyte # 1.74 X10^3/ul (0.83-4.51); Lymphocyte % 21.2 % (19-41); Mean Corp Hgb Conc 31.1 g/dL (32-36); Mean Corpuscular Hgb 30.6 pg (27.0-32.0); Mean Corpuscular Volume 98.3 fL (80-94); Mean Platelet Vol. 8.2 fl (6.2-12.0); Monocyte# 0.64 X10^3/uL; Monocyte% 7.8 % (0-10); NRBC Flagged by Analyzer 0 % (0-5); Neutrophil # 4.39 X10^3/uL (2.7-7.7); Neutrophil % 53.4 % (47-70); Platelet Count 418 K/mm3 (150-450); RBC Distribution Width CV 16.6 % (11.6-14.6); Red Blood Count 2.94 M/mm3 (4.6-6.2); White Blood Count 8.2 K/mm3 (4.4-11.0)
[2022-11-25 05:23] LABS: Anion Gap 3 (5-15); BUN 16 mg/dL (7-18); BUN/Creat Ratio 22.2 RATIO (10-20); Calcium,Total 8.3 mg/dL (8.5-10.1); Chloride 105 mmol/L (98-107); Creatinine, Serum 0.72 mg/dL (0.70-1.30); EST Glomerular Filtration Rate 121 mL/min (>60); Est Glom Filt Rate - Afr Amer 146 mL/min (>60); Estimated Creatinine Clearance 99.69 ml/min; Glucose 103 mg/dL (74-106); Potassium 3.9 mmol/L (3.5-5.1); Sodium Level 139 mmol/L (136-145)
[2022-11-25 07:38] LABS: CSF Color SL XANTH (Colorless)
[2022-11-25] MEDS: Aspirin 81 MG TAB.CHEW PO (08:43)
[2022-11-25] MEDS: Acetaminophen 500 MG Tablet 1000 MG PO ×2 (08:43→18:57)
[2022-11-25] MEDS: Folic Acid 1 MG Tablet PO (08:43)
--- NOTE | 2022-11-25 09:42 | PCA ---
Called [facility] at 930 to check on bed status. They stated that the hospital is at capacity and will call with a bed.
[2022-11-25] MEDS: Heparin Injection (Vial) 5,000 UNIT/ML VIAL 5000 UNIT SC ×2 (09:46→22:03)
[2022-11-25] MEDS: CHLORHEXIDINE GLUC 2% CLOTH 1 EACH TOWELETTE TOPICAL (09:46)
--- NOTE | 2022-11-25 11:39 | CASEMGMT ---
SW spoke with patient regarding SDOH as he triggered for concern with living situation. Patient denied concern with living situation and he is currently at a halfway. Patient is from [place] and just came to [place] to see his mom. He then ended up sick and sent to [facility]. Patient asked SW about Social Security Disability. SW provided patient with information on applying for Social Security. Joelle Wilson [employer]
[2022-11-25 12:27] LABS: Pathologist Review Reviewed
--- NOTE | 2022-11-25 12:48 | CHAPLAIN ---
Type of Pastoral Visit _x__ Initial Visit ___ Follow-up Visit ___ On-call Visit ___ General Patient Visit ___ Spiritual Assessment ___ Family Conference ___ Bereavement ___ Rapid Response ___ Code Blue ___ Other (describe below) Pastoral Care Referral From _x__ Patient ___ Family ___ Nurse ___ Physician ___ Programmer ___ Pulmonary Physician ___ Other (describe below) Sacrament/Intervention _x__ Active listening ___ Anointing ___ Orthodox ___ Bereavement ___ Communion ___ Erin exploration ___ ___ Life review _x__ Prayer ___ Reconciliation ___ Sacrament of Sick _x__ Supportive presence ___ Wedding ___ Other (describe below) Pastoral Comments patient asks for prayer so I can get home to my grandbabies; pt explains his health situation and exhibits some anxiety about almost dying and desire to return home to [place] to be near my family; pt states he has a mother in this area but family here are not going to help me; pt is tearful at times during the visit; calm presence and assurance of good care for patient; listening to concerns; offering a prayer; pt expresses thanks for the support; future visits are welcomed
--- NOTE | 2022-11-25 13:44 | PCM.CONS.GEN ---
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 Planned stop date 12/17/22. Picc in place. Reviewed [facility] records. History of IVDU. Now with focal encephalitis/cerebritis seen on MRI. 11/24 CSF shows wbc 57, rbc 86, protein 68, glucose 39. CSF cx neg so far; bcx neg so far. No fever here, headache resolved today. Currently on vanc/amp/cefepime/acyclovir. Transfer planned. He denies any drug use at facility. His prior enterococcus was susc to amp and vanc. Hard to completely rule out new process vs ongoing complications of his endocarditis. CT head did not show any sign of local source. Will hold off on anaerobic coverage at this point. Will follow, thank you, d/w Dr. Cifuentes. (2) Endocarditis: HPI Consult Data Date of Consult: 11/25/22 HPI Narrative Reason for Consultation: cerebritis HPI Narrative: KWAKU PORTILLO, is a 52 M with h/o IVDU, admitted 10/30 to 11/23/22 at [facility] after initially presenting to [facility] [place] with c/o syncopal episodes. TTE showed large mobile veg on aortic wall with severe regurg, severe MR and TR. Also found very large pleural effusion. Temp pacer placed. Taken to OR 11/05 for aortic valve replacement and mitral valve replacement. Bcx (+) for Enterococcus faecalis. Seen by ID (Dr. Santiago), abx eventually narrowed to amp/ceftriaxone and picc placed. Stop date for abx planned for 12/17/22 for 6 weeks total. Discharged to [facility] in [place]. At [facility], during first full day there, developed moderate R sided headache, no vision changes, no fever, no issues with picc or surgical incisions. Mild neck pain. Some reported confusion. C/o R hand paresthesias, also starting over past day. Sent to ED, CT, MRI, and LP done due to concern for meningitis/encephalitis. MRI showed cerebritis. Denies any recent drug use. Admitted to icu on vanc/cefepime/amp/acyclovir. Headache is resolved today, R hand still bothering him. Full ROS performed and neg except as noted above. [facility] Medical History (Updated 11/25/22 @ 15:[address] Julio C Suárez MD) Endocarditis Home Medications acetaminophen 500 mg capsule 1,000 mg PO Q6H PRN pain 11/24/22 [History Last Taken Unknown] ampicillin sodium 2 gram intravenous piggyback 2 g IV Q4H 11/24/22 [History Last Taken Unknown] aspirin 81 mg capsule 81 mg PO DAILY 11/24/22 [History Last Taken Unknown] atorvastatin 40 mg tablet 40 mg PO QHS 11/24/22 [History Last Taken Unknown] ceftriaxone 2 gram/50 mL in dextrose (iso-osm) intravenous piggyback 2 g IV Q12H 11/24/22 [History Last Taken Unknown] folic acid 1 mg tablet 1 mg PO DAILY 11/24/22 [History Last Taken Unknown] heparin (bovine) 5,000 unit/mL injection solution 5,000 unit .Route .q12 11/24/22 [History Last Taken Unknown] melatonin 3 mg capsule 9 mg PO QHS 11/24/22 [History Last Taken Unknown] metoprolol succinate 50 mg tablet,extended release 24 hr 75 mg PO QHS 11/24/22 [History Last Taken Unknown] oxycodone 5 mg capsule 5 mg PO Q4H PRN pain 11/24/22 [History Last Taken Unknown] Allergy/AdvReac Type Severity Reaction Status Date / Time No Known Allergies Allergy Verified 11/24/22 05:05 Family History (Updated 11/24/22 @ 20:[address] Santosh Cifuentes MD) Other Heart disease Surgical History (Updated 11/24/22 @ 20:[address] Santosh Cifuentes MD) Status post heart valve replacement Social History Smoking Status: Former smoker Physical Exam Const alert, oriented x3 and no apparent distress General Appearance: cooperative HEENT normocephalic and head/scalp atraumatic Eyes PERRL and EOMs intact bilaterally Neck supple and No nodes Resp normal air movement and clear to auscultation bilaterally Cardio regular rate, regular rhythm and no murmurs GI soft to palpation, non-tender and non-distended Extremity General Extremity: Negative for edema Skin no rashes or lesions noted Neuro CN's II-XII intact bilaterally Medical Records Data Medical Nutrition Assessment Dietitian: Malnutrition Criteria Met Start: 11/25/22 11:16 Freq: Status: Active Protocol: Document 11/25/22 11:30 RMA (Rec: 11/25/22 11:31 RMA [id number]) Nutrition Malnutrition Evidence of Malnutrition Exists Yes Malnutrition (severe): Acute Illness/Injury,Chronic Evidenced By Suboptimal Energy Intake ( Moderate),Weight Loss (Severe) ,Physical Changes (Severe) Clinical Problem Chronic Disease or Condition Related Malnutrition Etiology moderate to severe pro-juno malnutrition in the context of acute on chronic disease related to drug abuse and inadequate oral intake Signs/Symptoms as evidenced by BMI 20.5, ~18% weight loss x 1 year, PO meeting less than 50-75% estimated nutrition needs x past 6-12 months and physical muscle/fat wasting noted in the face, clavicle, arms and legs, multiple wound areas Status Active Problem Recommendation Dietitian Recommendations/Changes Continue liberalized regular diet for now due to signs/ symptoms of malnutrition; cardiac diet as indicated. Will add 240 mL ensure plus high protein BID w/ breakfast and dinner. Additional ONS as needed to optimize oral intake and prevent further weight decline . Lab / Micro Data Attestation: I reviewed the patient's lab results. 11/25/22 05:00 11/25/22 05:00 Labs: Laboratory Results - last 24 hr 11/24/22 12:25: CSF Color SL XANTH H, CSF Neutrophils 57 H, CSF Lymphocytes 29 L, CSF Monocytes 14 L, CSF Comment Reviewed 11/25/22 05:00: WBC 8.2, RBC 2.94 L, Hgb 9.0 L, Hct 28.9 L, MCV 98.3 H, MCH 30.6, MCHC 31.1 L, RDW Std Deviation 60.0 H, RDW Coeff of Polo 16.6 H, Plt Count 418, MPV 8.2, Immature Gran % (Auto) 0.400, Neut % (Auto) 53.4, Lymph % (Auto) 21.2, [place] % (Auto) 7.8, Eos % (Auto) 16.0 H, Baso % (Auto) 1.2 H, Absolute Neuts (auto) 4.4, Absolute Lymphs (auto) 1.74, Nucleated RBC % 0, Sodium 139, Potassium 3.9, Chloride 105, Carbon Dioxide 31.0, Anion Gap 3 L, BUN 16, Creatinine 0.72, Estim Creat Clear Calc 99.69, Est GFR (MDRD) Af Amer 146, Est GFR (MDRD) Non-Af 121, BUN/Creatinine Ratio 22.2 H, Glucose 103, Calcium 8.3 L Micro: Microbiology 11/24/22 12:25 Csf, Spinal Fluid Gram Stain - Final 11/24/22 12:25 Csf, Spinal Fluid CSF Culture - Preliminary Culture exhibits no growth. 11/24/22 12:25 Csf, Spinal Fluid Streptococcus pneumoniae Antigen (M - Final
--- NOTE | 2022-11-25 16:28 | PN.HOSP_ITS ---
Reason for Visit Reason for Visit: Headache Subjective Subjective Patient is frustrated. He reports that he told them at [facility] he had a headache prior to being discharged that was not improving with Tylenol and he is upset that no further evaluation was done prior to discharging him. He states he lives in [place] and would really like to get back home soon as possible. He is still complaining of a headache and has pain with neck flexion that is pretty significant. Still awaiting a bed at [facility] Main calera. Objective Data Objective Data Vital Signs: Vital Signs Temp Pulse Resp BP Pulse Ox O2 Del Method 97.8 F 98 19 H 129/83 H 100 Room Air 11/25/22 16:00 11/25/22 16:00 11/25/22 16:00 11/25/22 16:00 11/25/22 16:00 11/25/22 16:00 Oxygen Delivery Method Room Air Weight: 59.4 kg Body Mass Index (BMI) 20.5 Intake & Output: Intake and Output for Last 24 Hours 11/23/22 11/24/22 11/25/22 23:59 23:59 23:59 Intake Total 1014.1 / 1014.1 1636 / 1636 Output Total 50 / 50 350 / 350 Balance 964.1 / 964.1 1286 / 1286 Medical Nutrition Assessment Dietitian: Malnutrition Criteria Met Start: 11/25/22 11:16 Freq: Status: Active Protocol: Document 11/25/22 11:30 RMA (Rec: 11/25/22 11:31 RMA [id number]) Nutrition Malnutrition Evidence of Malnutrition Exists Yes Malnutrition (severe): Acute Illness/Injury,Chronic Evidenced By Suboptimal Energy Intake ( Moderate),Weight Loss (Severe) ,Physical Changes (Severe) Clinical Problem Chronic Disease or Condition Related Malnutrition Etiology moderate to severe pro-juno malnutrition in the context of acute on chronic disease related to drug abuse and inadequate oral intake Signs/Symptoms as evidenced by BMI 20.5, ~18% weight loss x 1 year, PO meeting less than 50-75% estimated nutrition needs x past 6-12 months and physical muscle/fat wasting noted in the face, clavicle, arms and legs, multiple wound areas Status Active Problem Recommendation Dietitian Recommendations/Changes Continue liberalized regular diet for now due to signs/ symptoms of malnutrition; cardiac diet as indicated. Will add 240 mL ensure plus high protein BID w/ breakfast and dinner. Additional ONS as needed to optimize oral intake and prevent further weight decline . Lab / Micro Data 11/25/22 05:00 11/25/22 05:00 Labs: Laboratory Results - last 24 hr 11/24/22 12:25: CSF Color SL XANTH H, CSF Comment Reviewed 11/25/22 05:00: WBC 8.2, RBC 2.94 L, Hgb 9.0 L, Hct 28.9 L, MCV 98.3 H, MCH 30.6, MCHC 31.1 L, RDW Std Deviation 60.0 H, RDW Coeff of Polo 16.6 H, Plt Count 418, MPV 8.2, Immature Gran % (Auto) 0.400, Neut % (Auto) 53.4, Lymph % (Auto) 21.2, [place] % (Auto) 7.8, Eos % (Auto) 16.0 H, Baso % (Auto) 1.2 H, Absolute Neuts (auto) 4.4, Absolute Lymphs (auto) 1.74, Nucleated RBC % 0, Sodium 139, Potassium 3.9, Chloride 105, Carbon Dioxide 31.0, Anion Gap 3 L, BUN 16, Creatinine 0.72, Estim Creat Clear Calc 99.69, Est GFR (MDRD) Af Amer 146, Est GFR (MDRD) Non-Af 121, BUN/Creatinine Ratio 22.2 H, Glucose 103, Calcium 8.3 L Micro: Microbiology 11/24/22 12:25 Csf, Spinal Fluid Gram Stain - Final 11/24/22 12:25 Csf, Spinal Fluid CSF Culture - Preliminary Culture exhibits no growth. 11/24/22 12:25 Csf, Spinal Fluid Streptococcus pneumoniae Antigen (M - Final Physical Exam Const alert and oriented x3 Constitutional Narrative: Thin, middle-aged, white male, sitting up on the edge of the bed, appears older than stated age, appears uncomfortable but nontoxic HEENT head/scalp atraumatic and moist oral mucous membranes HEENT Narrative: Dentition is poor, Mallampati is 2, no thrush Resp normal respiratory effort, no retractions, no use of accessory muscles and clear to auscultation bilaterally Resp Narrative: Diffusely diminished but clear Auscultation: Negative for rales, rhonchi or wheezes Cardio regular rate, regular rhythm, S1 normal heart sound, S2 normal heart sound, no murmurs, no rub, no gallops and no clicks GI normal to inspection, nondistended, normoactive bowel sounds, soft to palpation and non-tender Extremity no clubbing, cyanosis or edema Extremity Narrative: Pedal pulses are 2+ Skin Skin Narrative: Sternotomy incision is clean dry and intact and seems to be healing well, right upper extremity PICC in place with intact dressing and appears well Neuro oriented x3, moves all extremities and no focal motor deficits Speech: speech normal Psych Psych Narrative: Affect is flat and mood seems somewhat depressed Assessment & Plan Assessment/Plan (1) Endocarditis: (2) Cerebritis: (3) Anemia: PLAN: Plan Acute cerebritis -CSF consistent with infection showing elevated protein and low glucose -MRI shows focal encephalitis/cerebritis -Currently afebrile -Still with headache -Continue ampicillin, cefepime, acyclovir, and vancomycin -ID following -CSF cultures are negative thus far but patient had been on ampicillin and ceftriaxone as an outpatient -Awaiting bed at [facility] will transfer when bed available 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 History of IVDU -Patient denies any recent drug use Hypertension -Continue metoprolol Hyperlipidemia -Continue Insomnia -Continue melatonin History of tobacco abuse -As needed albuterol -Nicotine patch available if needed DVT prophylaxis -Subcu heparin as ordered CODE STATUS Full code Charges/Coding Visit Charges Inpatient E&M: 14898 Subs Hosp L2
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
[2022-11-25] MEDS: Ondansetron 4 MG/2 ML Vial IV (20:06)
[2022-11-25] MEDS: oxyCODONE 5 MG Tablet PO (20:06)
[2022-11-25] MEDS: Atorvastatin Calcium 40 MG Tablet PO (22:06)
[2022-11-25] MEDS: Metoprolol(XL)Succ 25 MG Tablet 75 MG PO (22:06)
[2022-11-26] VITALS (9 sets, daily range): BP systolic 94–135; BP diastolic 48–88; PULSE 19–114; RESP 17–25; TEMP 36.2–36.9; O2SAT 92–99; BMI 21.4
[2022-11-26 02:44] LABS: Absolute Lymphocyte Count 1.61 X10^3/uL (0.83-4.51); Basophil# 0.15 X10^3/uL; Basophil% 1.9 % (0-1); Eosinophil# 1.38 X10^3/uL; Eosinophils% 17.7 % (0-5); Hematocrit 27.7 % (40-54); Hemoglobin 8.2 g/dL (13.0-16.5); Lymphocyte # 1.61 X10^3/ul (0.83-4.51); Lymphocyte % 20.6 % (19-41); Mean Corp Hgb Conc 29.6 g/dL (32-36); Mean Corpuscular Hgb 29.8 pg (27.0-32.0); Mean Corpuscular Volume 100.7 fL (80-94); Mean Platelet Vol. 8.4 fl (6.2-12.0); Monocyte# 0.68 X10^3/uL; Monocyte% 8.7 % (0-10); NRBC Flagged by Analyzer 0 % (0-5); Neutrophil # 3.95 X10^3/uL (2.7-7.7); Neutrophil % 50.7 % (47-70); Platelet Count 412 K/mm3 (150-450); RBC Distribution Width CV 16.4 % (11.6-14.6); RBC Distribution Width SD 60.1 fl (35.1-43.9); Red Blood Count 2.75 M/mm3 (4.6-6.2); White Blood Count 7.8 K/mm3 (4.4-11.0)
[2022-11-26 02:58] LABS: Anion Gap 1 (5-15); BUN 15 mg/dL (7-18); BUN/Creat Ratio 18.7 RATIO (10-20); Calcium,Total 8.3 mg/dL (8.5-10.1); Chloride 108 mmol/L (98-107); EST Glomerular Filtration Rate 107 mL/min (>60); Est Glom Filt Rate - Afr Amer 129 mL/min (>60); Estimated Creatinine Clearance 89.72 ml/min; Glucose 86 mg/dL (74-106); Potassium 3.9 mmol/L (3.5-5.1); Sodium Level 139 mmol/L (136-145)
[2022-11-26 03:04] LABS: Vancomycin, Trough Level 15.2 ug/mL (5.0-15.0)
--- NOTE | 2022-11-26 03:22 | PCM.RX.CS ---
Consult Antibiotic Management Pharmacy has been consulted to manage selected antiobiotic: Vancomycin Type of Intervention Type of Consult: Follow-up Labs Labs: Sodium 139 mmol/L (136-145) 11/26/22 02:37 Potassium 3.9 mmol/L (3.5-5.1) 11/26/22 02:37 Chloride 108 mmol/L (98-107) H 11/26/22 02:37 Carbon Dioxide 30.0 mmol/L (21.0-32.0) 11/26/22 02:37 Anion Gap 1 (5-15) L 11/26/22 02:37 BUN 15 mg/dL (7-18) 11/26/22 02:37 Creatinine 0.80 mg/dL (0.70-1.30) 11/26/22 02:37 Est GFR (MDRD) Af Amer 129 mL/min (>60) 11/26/22 02:37 Est GFR (MDRD) Non-Af 107 mL/min (>60) 11/26/22 02:37 BUN/Creatinine Ratio 18.7 RATIO (10-20) 11/26/22 02:37 Glucose 86 mg/dL (74-106) 11/26/22 02:37 Vancomycin Trough 15.2 ug/mL (5.0-15.0) H 11/26/22 02:37 Microbiology Microbiology: Microbiology 11/24/22 12:25 Csf, Spinal Fluid Gram Stain - Final 11/24/22 12:25 Csf, Spinal Fluid CSF Culture - Preliminary Culture exhibits no growth. 11/24/22 12:25 Csf, Spinal Fluid Streptococcus pneumoniae Antigen (M - Final Dosing Weight Weight used for dosin.4 kg Estimated Creatinine Clearance Estimated Creatinine Clearance: 90 Goal Trough Goal Trough: 15-20 mcg/mL Pharmacy Plan for Drug Dosing Pharmacy Plan for Drug Dosing: Vancomycin trough level of 15.2, drawn 11 hrs post-dose, was within target range of 15-20. Will continue dosing at 1000mg q12h, and will re-draw a trough in two days. Pharmacy Service will continue to monitor and adjust dosing as required. Follow-Up Labs Follow-Up Labs: Trough: Vancomycin Date/Time Labs Ordered Labs to be done on [date and time ordered]: 11/28/22 @0200
[2022-11-26] MEDS: Vancomycin IV 1,000 MG/200 ML BAG 200 MG IV (03:29)
[2022-11-26] MEDS: Acetaminophen 500 MG Tablet 1000 MG PO (04:12)
[2022-11-26] MEDS: oxyCODONE 5 MG Tablet PO (04:13)
[2022-11-26] MEDS: Folic Acid 1 MG Tablet PO (08:08)
[2022-11-26] MEDS: Aspirin 81 MG TAB.CHEW PO (08:08)
--- NOTE | 2022-11-26 09:09 | CASEMGMT ---
Discharge Planning Insurance review for hospitals In-network with?[place] insurance if transfer is recommended is as follows: [facility], [facility], [facility], [facility], [facility], [facility]), and . Katharina Rodriguez, Discharge Planning Asst.
[2022-11-26] MEDS: Heparin Injection (Vial) 5,000 UNIT/ML VIAL 5000 UNIT SC (09:43)
[2022-11-26] MEDS: CHLORHEXIDINE GLUC 2% CLOTH 1 EACH TOWELETTE TOPICAL (09:43)
--- NOTE | 2022-11-26 09:46 | PCM.PN.ID ---
Physical Exam Narrative Feeling ok, frustrated with nursing. Some headache last night, resolved with some food. No headache or neck pain this AM. No fever. Const alert and no apparent distress General Appearance: cooperative Neck supple Resp normal air movement and clear to auscultation bilaterally Cardio regular rate and regular rhythm GI soft to palpation, non-tender and non-distended Extremity General Extremity: Negative for edema Skin Skin Narrative: some purulence in back wound. 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 Planned stop date 12/17/22. Pic[address] in [address]. Reviewed [facility] records. History of IVDU. Now with focal encephalitis/cerebritis seen on MRI. 11/24 CSF shows wbc 57, rbc 86, protein 68, glucose 39. CSF cx neg so far; bcx neg so far. No fever here, headache resolved today. Currently on vanc/amp/cefepime/acyclovir. Transfer planned. He denies any drug use at facility. His prior enterococcus was susc to amp and vanc. Hard to completely rule out new process vs ongoing complications of his endocarditis. CT head did not show any sign of local source. Will hold off on anaerobic coverage at this point. No need for droplet isolation; no evidence of neisseria. Some purulence today at R mid back wound, wound care consulted, will order wound culture. Will follow, d/w nursing (2) Endocarditis:
--- NOTE | 2022-11-26 10:59 | NURSING ---
Report given to [facility] nurse, all concerns and questions answered
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
[2022-11-27 13:09] LABS: Cryptococcus Antigen CSF Negative (Negative); HSV 1 By PCR Negative (Negative); HSV 2 By PCR Negative (Negative)
== END 2022-11-26 10:40 | disposition short-term general hospital (02) | DRG 94 ==
LOC: ED 19:04 → ICU 20:17
PROVIDERS: Emergency Medicine; Internal Medicine; Admitting Provider Family Medicine; Emergency Provider Emergency Medicine; PCP Internal Medicine; Visit Provider Family Medicine
DX: G04.2 Bacterial meningoencephalitis and meningomyelitis, not elsewhere classified (principal); I33.0 Acute and subacute infective endocarditis; E44.0 Moderate protein-calorie malnutrition; I10 Essential (primary) hypertension; E78.5 Hyperlipidemia, unspecified; G47.00 Insomnia, unspecified; Z68.21 Body mass index [BMI] 21.0-21.9, adult; Z79.82 Long term (current) use of aspirin; Z79.899 Other long term (current) drug therapy; Z87.898 Personal history of other specified conditions; Z87.891 Personal history of nicotine dependence
CPT/HCPCS: 62270; 70450; 70553; 71045; 80048; 80202; 82945; 83735; 84157; 85025; 87070; 87205; 87449; 87529; 87798; 87899; 89050; 89051; 93005; 97802; 99285; A9575; J7040; A4216; J0696; J2405

== ENCOUNTER 2023-11-23 12:16 | Emergency (ER) | payer BC, MEDICAID, SELFPAY ==
[2023-11-23] VITALS (7 sets, daily range): BP systolic 139–151; BP diastolic 84–133; PULSE 67–83; RESP 12–19; TEMP 36.3–37.2; O2SAT 99–100; BMI 22.7
--- NOTE | 2023-11-23 13:28 | CT_ITS ---
STUDY: CT BRAIN WITHOUT CONTRAST REASON FOR EXAM: Male, 53 years old. Headache. History of aneurysm. RADIATION DOSAGE (If Supplied By Facility): CTDIvol = ( 44.99 ) mGy, DLP = ( 863.60 ) mGycm TECHNIQUE: Transaxial CT imaging of the brain was performed without administration of intravenous contrast material. Individualized dose optimization techniques were used for this CT. COMPARISON: Comparison is made with prior study November 24, 2022. FINDINGS: Normal soft tissue structures. Normal calvarium. Metallic clip artifact is seen in the right temporal fossa anteriorly with history of prior aneurysm repair. Hydrocephalus. Normal white matter tracts of the cerebral hemispheres. Normal basal ganglia and thalami. Normal brainstem. Normal cerebellum. There is no intracranial hemorrhage. There are no findings of an acute ischemic infarction. There is opacification of the right maxillary sinus as well as the right ethmoid sinus and the frontal sinuses. Mucosal thickening of the left sphenoid sinus. CT/Brain/Head without Contrast IMPRESSION: Hydrocephalus. Status post aneurysmal clipping in the right temporal fossa anteriorly. Sinusitis. Electronically Signed: Anthony Simental MD at 14:03 EDT ,
[2023-11-23 13:34] LABS: Absolute Neutrophil Count 3.6 X10^3/uL (2.0-7.7); Basophil# 0.04 X10^3/uL; Basophil% 0.6 % (0-1); Eosinophil# 0.65 X10^3/uL; Eosinophils% 9.5 % (0-5); Hematocrit 42.6 % (40-54); Hemoglobin 13.9 g/dL (13.0-16.5); Lymphocyte % 27.7 % (19-41); Mean Corp Hgb Conc 32.6 g/dL (32-36); Mean Corpuscular Hgb 30.2 pg (27.0-32.0); Mean Corpuscular Volume 92.4 fL (80-94); Mean Platelet Vol. 9.5 fl (6.2-12.0); Monocyte% 8.8 % (0-10); NRBC Flagged by Analyzer 0 % (0-5); Neutrophil # 3.64 X10^3/uL (2.7-7.7); Neutrophil % 53.1 % (47-70); Platelet Count 289 K/mm3 (150-450); RBC Distribution Width CV 13.3 % (11.6-14.6); RBC Distribution Width SD 45.1 fl (35.1-43.9); Red Blood Count 4.61 M/mm3 (4.6-6.2); White Blood Count 6.9 K/mm3 (4.4-11.0)
--- NOTE | 2023-11-23 13:34 | EX.ED.DYSGE1 ---
HPI History of Present Illness Chief Complaint: Fatigue Informant: patient Narrative Narrative: 53-year-old male presenting to the emergency department stating that he needs testing done. Patient states that he went to [facility] this morning looking to see how he could get into [facility] [place] where he stayed before before. He states that last year he in the [facility] parking lot in [place] and had $1 million worth of surgeries on his heart. He states that he was using IV methamphetamines at that time. He states that he was transferred to [facility] [place] and then was admitted at this hospital where he had poison on the brain and was getting antibiotics with Turbo and then was transferred back to the [facility] where it was not poison on his brain but an aneurysm. He states that after that hospitalization he went to [place] where he entered hospice but then left hospice recently to go get antibiotics in an effort to live longer. He states he came back to [place] and has been staying with family where he cannot stay with anymore and so he began to look at where he can stay and decided that [facility] [place] would be appropriate. He does not remember who his doctors were but that it is in my chart. I did explain to the patient that we are not a [facility] and do not have [facility] and neither is [facility]. He tells me that he has been having bilateral hand pains in his left thumb dislocates until he moves it and then he feels a pop and then he can move it again. He notes headaches on the right side of his head with intermittent vision loss. He notes pain across the upper abdomen lower chest on the each side that goes up into his midsternal chest. He states he is not on any medications and does not know what medications he should be on. He feels generally tired most days. He denies any rashes. He states that he started having bowel movements again a few days ago. He states that he has urinary hesitancy but has been emptying the bladder. [facility] Medical History Endocarditis Home Medications ?Medication ?Instructions ?Recorded ?Last Taken ?Type acetaminophen 500 mg capsule 1,000 mg PO Q6H PRN pain 11/24/22 Unknown History ampicillin sodium 2 gram 2 g IV Q4H 11/24/22 Unknown History intravenous piggyback aspirin 81 mg capsule 81 mg PO DAILY 11/24/22 Unknown History atorvastatin 40 mg tablet 40 mg PO QHS 11/24/22 Unknown History ceftriaxone 2 gram/50 mL in 2 g IV Q12H 11/24/22 Unknown History dextrose (iso-osm) intravenous piggyback folic acid 1 mg tablet 1 mg PO DAILY 11/24/22 Unknown History heparin (bovine) 5,000 unit/mL 5,000 unit .Route .q12 11/24/22 Unknown History injection solution melatonin 3 mg capsule 9 mg PO QHS 11/24/22 Unknown History metoprolol succinate 50 mg 75 mg PO QHS 11/24/22 Unknown History tablet,extended release 24 hr oxycodone 5 mg capsule 5 mg PO Q4H PRN pain 11/24/22 Unknown History pantoprazole 20 mg tablet,delayed 20 mg PO DAILY #30 tabs 11/23/23 Unknown Rx release (Protonix) Allergy/AdvReac Type Severity Reaction Status Date / Time No Known Allergies Allergy Verified 11/23/23 12:17 Family History Other Heart disease Surgical History Status post heart valve replacement Social History Smoking Status: Current every day smoker tobacco type: cigarettes ROS ROS ED ROS Narrative Generalized weakness Constitutional Constitutional ED: Denies chills, fever(s) or weight loss Eyes Eyes: Reports change in vision; Denies blurry vision or diplopia ENT ENT ED: Denies ear pain, rhinorrhea or sore throat Cardiovascular Cardiovascular: Reports chest pain; Denies orthopnea, palpitations or racing heartbeat Respiratory/Chest Respiratory/Chest: Denies cough, dyspnea or orthopnea Gastrointestinal Gastrointestinal: Reports abdominal pain; Denies diarrhea, nausea or vomiting Genitourinary Genitourinary ED: Denies dysuria, hematuria or urinary frequency Musculoskeletal Musculoskeletal: Reports other Details: See history of present illness ; Denies arthralgias or myalgias Integumentary Denies abscess or rash Neurologic Neurologic: Reports headache(s); Denies weakness Psychiatric Psychiatric: Denies anxiety, depression, suicidal ideation or suicidal thoughts Endocrine Endocrinology: Denies polydipsia, polyphagia or polyuria Allergic/Immunologic Allergic/Immunologic ED: Denies mouth swelling, tongue swelling or urticaria EXAM Physical Exam Const Vital Signs: 11/23/23 12:17 11/23/23 12:21 11/23/23 12:30 Temperature 97.3 F L 98.0 F Temperature Source Temporal Temporal Pulse Rate 83 74 Respiratory Rate 16 12 Respiratory Effort Normal Respiratory Pattern Normal Blood Pressure 151/90 H 139/94 H Blood Pressure Mean 110 109 Pulse Ox 100 100 Oxygen Delivery Method Room Air Room Air 11/23/23 13:21 11/23/23 13:28 11/23/23 13:56 Temperature 98.0 F 99.0 F Temperature Source Temporal Oral Pulse Rate 70 75 67 Respiratory Rate 16 19 H 12 Respiratory Effort Respiratory Pattern Blood Pressure 140/84 H 148/95 H 151/133 H Blood Pressure Mean 102 112 139 Pulse Ox 100 100 100 Oxygen Delivery Method Room Air Room Air Room Air 11/23/23 15:00 11/23/23 15:50 Temperature 97.9 F Temperature Source Pulse Rate 68 71 Respiratory Rate 16 16 Respiratory Effort Respiratory Pattern Blood Pressure 139/91 H 140/99 H Blood Pressure Mean 107 112 Pulse Ox 100 99 Oxygen Delivery Method Room Air Positive well nourished and well developed General Appearance ED: well developed HEENT Reports normocephalic, head/scalp atraumatic and moist mucous membranes Eyes PERRL and EOMs intact bilaterally Neck no lymphadenopathy, supple and no JVD Resp normal respiratory effort and clear to auscultation bilaterally Cardio regular rate, regular rhythm and no murmurs GI normal to inspection, nondistended, normoactive bowel sounds and non-tender Palpation: soft Back/Spine no CVA tenderness and normal ROM Extremity Extremity Narrative: Patient appears to have more of a trigger finger involving the bilateral thumbs rather than actually dislocating and what he shows me is it getting stuck. General Extremety ED: Negative for edema General Extremity: Negative for edema Neuro oriented x3 and CN's II-XII intact bilaterally Sensorium / Orientation: alert Motor Exam: strength 5/5 throughout Psych Psych Narrative: Patient with flat affect. Monotone speech. Mood & Affect: Negative for depressed or tearful Skin no rashes or lesions noted and no wounds MDM MDM MDM Narrative Medical decision making narrative: Differential diagnosis includes but not limited to sepsis anemia electrolyte abnormalities renal dysfunction liver dysfunction stroke brain mass intracranial bleeding UTI dehydration endocarditis myocarditis GERD/gastritis Basic blood work was obtained which overall looks very well. CBC BMP liver enzymes troponin essentially negative. Urinalysis shows no overt infection or hematuria. He has remained in a sinus rhythm on the monitor. My independent interpretation of the chest x-ray is no acute process. CT the brain was obtained which demonstrates no acute process. Aneurysmal clip seen. Not seeing anything obvious on his physical exam or on his ED workup. I do not see anything that would necessarily qualify him for hospital admission at this time for [facility] rehab facility. I suspect that some of his epigastric discomfort may in fact be related to GERD. It is episodic he is a smoker. He can place him on some Protonix see if that helps. He states that he needs to switch his SSI and Medicaid to [place]. I informed him that since he got a lot of his care through the [facility] it may be of benefit to see a [facility] primary care provider once he has that switched. He notes understanding of this. He is upset that we do not have a plan for where he is going to stay particularly this upcoming winter. At this point however I am not seeing any obvious medical emergency that would necessitate hospitalization/transfer. Patient to be discharged home History & Record Review Discussion w/independent historian: Patient Additional record(s) reviewed:: Prior inpatient record and Prior labs Lab Data Attestation: I reviewed the patient's lab results. Labs: Laboratory Results - last 24 hr 11/23/23 11/23/23 13:00 13:40 WBC 6.9 RBC 4.61 Hgb 13.9 Hct 42.6 MCV 92.4 MCH 30.2 MCHC 32.6 RDW Std Deviation 45.1 H RDW Coeff of [place] 13.3 Plt Count 289 MPV 9.5 Immature Gran % (Auto) 0.300 Neut % (Auto) 53.1 Lymph % (Auto) 27.7 [place] % (Auto) 8.8 Eos % (Auto) 9.5 H Baso % (Auto) 0.6 Absolute Neuts (auto) 3.6 Absolute Lymphs (auto) 1.90 Nucleated RBC % 0 Sodium 139 Potassium 4.5 Chloride 106 Carbon Dioxide 27.0 Anion Gap 6 BUN 19 H Creatinine 1.15 Estim Creat Clear Calc 72.65 Est GFR (MDRD) Af Amer 85 Est GFR (MDRD) Non-Af 70 BUN/Creatinine Ratio 16.5 Glucose 79 Calcium 8.8 Total Bilirubin 0.70 Direct Bilirubin 0.14 AST 18 ALT 16 Alkaline Phosphatase 92 Troponin I High Sens 5 Total Protein 8.1 Albumin 3.6 Globulin 4.5 H Urine Color Yellow Urine Clarity Clear Urine pH 6.0 Ur Specific [place] 1.015 Urine Protein Negative Urine Glucose (UA) Normal Urine Ketones Negative Urine Occult Blood Negative Urine Nitrite Negative Urine Bilirubin Negative Urine Urobilinogen Normal Ur Leukocyte Esterase Negative Urine RBC 0-5 SEEN Urine WBC 0-5 SEEN Ur Squamous Epith Cells 0 SEEN Urine Bacteria RARE Hyaline Casts 0-5 SEEN Urine Mucus 0 SEEN Radiography Diagnostic Testing: Clinical Impression(s) from Imaging Studies Brain CT 11/23/23 13:28 IMPRESSION: Hydrocephalus. Status post aneurysmal clipping in the right temporal fossa anteriorly. Sinusitis. Electronically Signed: Anthony Simental MD at 14:03 EDT , Chest X-Ray 11/23/23 13:47 IMPRESSION: Hyperinflation. The lungs are clear. Electronically Signed: Anthony Simental MD at 14:12 EDT , EKG Initial EKG: Attestation: I personally reviewed and interpreted this EKG as follows: Comments: Normal sinus rhythm ventricular rate of 67 bpm Discharge Plan Triage Chief Complaint: Fatigue ED Provider: Og Ramírez Dx/Rx/DC Orders Clinical Impression: Weakness, Headache, Abdominal pain Instructions: ED GERD (Adult) Prescriptions: New pantoprazole [Protonix] 20 mg tablet,delayed release (DR/EC) 20 mg PO DAILY Qty: 30 0RF No Action acetaminophen 500 mg capsule 1,000 mg PO Q6H PRN (Reason: pain) ampicillin sodium 2 gram piggyback 2 g IV Q4H aspirin 81 mg capsule 81 mg PO DAILY atorvastatin 40 mg tablet 40 mg PO QHS ceftriaxone in dextrose,iso-os 2 gram/50 mL piggyback 2 g IV Q12H folic acid 1 mg tablet 1 mg PO DAILY heparin (bovine) 5,000 unit/mL solution 5,000 unit .Route .q12 melatonin 3 mg capsule 9 mg PO QHS metoprolol succinate 50 mg tablet extended release 24 hr 75 mg PO QHS oxycodone 5 mg capsule 5 mg PO Q4H PRN (Reason: pain) Primary Care Provider: Care Physician,No Primary Referrals: Amy Charles [Non-Staff] - As soon as possible (for primary care until you can establish with a pcp of choice) Care Physician,No Primary [Primary Care Provider] - Print Language: Hungarian Disposition Disposition: Home, Self Care Discharge Date/Time: 11/23/23 15:51
[2023-11-23 13:46] LABS: Mucous, Urine 0 SEEN /hpf (<or=2+); Squamous Epithelial Cells - UA 0 SEEN /hpf (0-5)
--- NOTE | 2023-11-23 13:47 | RAD_ITS ---
STUDY: X-RAY CHEST REASON FOR EXAM: Male, 53 years old. Chest pain. History of prior CABG and valve replacement. TECHNIQUE: Single AP portable view of the chest. COMPARISON: Comparison is made with prior study dated November 24, 2022. FINDINGS: EKG electrodes are seen. Hyperinflation. The lungs are clear. There is no demonstrated pleural abnormality. Sternal cerclage wires are present from a prior sternotomy. Prior aortic and mitral valve replacement. Normal mediastinum and emmett. Normal visualized pulmonary arteries. Normal visualized aortic arch and descending thoracic aorta. There are degenerative changes of the visualized thoracic spine. Normal visualized ribs, clavicles, and shoulders. There is no demonstrated abnormality of the visualized soft tissue structures of the upper abdomen. RAD/Chest 1 View (Portable) IMPRESSION: Hyperinflation. The lungs are clear. Electronically Signed: Anthony Simental MD at 14:12 EDT ,
[2023-11-23 13:50] LABS: Color, Urine Yellow (Yellow); Glucose, Dipstick Normal (Normal); Ketone-Dipstick Negative (Negative); Leukocyte Esterase-Dipstick Negative /ul (Negative); Nitrite-Dipstick Negative (Negative); Occult Blood-Urine Negative /ul (Negative); Protein-Dipstick Negative (Negative); Specific Gravity, Urine 1.015 (1.002-1.030); Urine Bilirubin Dipstick Negative (Negative); Urine Clarity Clear (Clear); Urine Urobilinogen Normal (Normal)
[2023-11-23 13:57] LABS: AST(SGOT) 18 U/L (15-37); Alanine Aminotransfer ALT/SGPT 16 U/L (16-61); Albumin, Serum 3.6 g/dL (3.2-5.0); Alkaline Phosphatase 92 U/L (45-117); Anion Gap 6 (5-15); BUN 19 mg/dL (7-18); BUN/Creat Ratio 16.5 RATIO (10-20); Bilirubin, Direct 0.14 mg/dL (0.00-0.30); Calcium,Total 8.8 mg/dL (8.5-10.1); Chloride 106 mmol/L (98-107); Creatinine, Serum 1.15 mg/dL (0.70-1.30); EST Glomerular Filtration Rate 70 mL/min (>60); Est Glom Filt Rate - Afr Amer 85 mL/min (>60); Estimated Creatinine Clearance 72.65 ml/min; Globulin 4.5 g/dL (2.2-4.2); Glucose 79 mg/dL (74-106); Potassium 4.5 mmol/L (3.5-5.1); Protein, Total 8.1 g/dL (6.4-8.2); Sodium Level 139 mmol/L (136-145); Troponin-I HS 5 pg/mL (3.0-78.0)
[2023-11-23 14:12] LABS: Bacteria RARE /hpf (None Seen); Hyaline Cast 0-5 SEEN /lpf (0-5); Red Blood Cells-Urine 0-5 SEEN /hpf (0-5); White Blood Cells 0-5 SEEN /hpf (0-5)
== END 2023-11-23 15:51 | disposition home or self-care (01) ==
PROVIDERS: Emergency Provider Emergency Medicine; Visit Provider Emergency Medicine
DX: R53.1 Weakness (principal); R51.9 Headache, unspecified; R10.9 Unspecified abdominal pain; F17.210 Nicotine dependence, cigarettes, uncomplicated
CPT/HCPCS: 70450; 71045; 80048; 80076; 81001; 84484; 85025; 93005; 99284; A4216